=== PATIENT | female | born 1950 | race Caucasian/White ===

== ENCOUNTER 2020-06-03 07:40 | Observation (INO) | payer MEDICARE, OTHER ==
[~2020-06-03] VITALS: Ht 165.1 cm; Wt 59.1 kg
[2020-06-03] VITALS (7 sets, daily range): BP systolic 68–147; BP diastolic 35–87; Ht 165.1 cm; Wt 59.1 kg
--- NOTE | ~2020-06-03 | EC ---
PATIENT:CRYSTAL MUJICA DATE OF SERVICE: 06/03/20 SEX: F MEDICAL RECORD: [id number] DATE OF : [birth year] LOCATION:[address]212 AGE OF PATIENT: 70 ADMISSION DATE: 06/03/20 REFERRING PHYSICIAN: INTERPRETING PHYSICIAN: RAMÍREZ WHITE MD ECHOCARDIOGRAM REPORT ECHO CHARGES 4 ECHO COMPLETE Date: 06/03/20 CLINICAL DIAGNOSIS: CHEST PAIN ECHOCARDIOGRAPHIC MEASUREMENTS (adult normal given) AC root (d.<3.7cm) 2.3 cm LV Septum d (<1.2 cm> 1.1 cm Valve Excursion 1.0 cm LV Septum (systole) 1.2 cm Left Atria (s.<4.0cm> 2.7 cm LVPW d(<1.2cm) 1.0 cm RV (d.<2.3cm) 3.0 cm LVPW (sytole) 1.1 cm LV diastole(<5.6CM) 4.9 cm MV E-F(>70mm/sec) cm LV systole 3.4 cm LVOT Diameter 1.6 cm MV exc.(>10mm) 1.2 cm Est.ejection fraction (50-75%) % DOPPLER: LVIT cm/sec A 84.0 cm/sec E 69.0 cm/sec LA cm/sec RVSP 25 mmHg LVOT 116 cm/sec AOP1/2T m/s Asc. Ao 141 cm/sec RVOT 66 cm/sec RA cm/sec PA 84 cm/sec AV Gradient Peak 7.99 mmHg AV Mean 3.78 mmHg AV Area 1.4 cm MV Gradient Peak 3.17 mmHg MV Mean 1.34 mmHg MV Area cm COMMENTS: General Magistrate: 2 WON GARCIA Director Of Community Services: 4 Dr. White TAPE# PACS Pericardial Effusion N DATE OF SERVICE: PROCEDURE: Transthoracic echocardiogram. FINDINGS: 1. The patient has mild left ventricular hypertrophy with diastolic dysfunction with ejection fraction of 65% to 70% without evidence of regional wall motion abnormalities. 2. The left atrium is normal size, shape, structure, and function. ECHOCARDIOGRAM REPORT [id number] CRYSTAL MUJICA Aortic valve is normal. Mitral valve is normal. The tricuspid valve is normal with normal right ventricular systolic pressures. The right ventricle is normal. The right atrium is normal. Pulmonic valve is normal. 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
[2020-06-03] MEDS ORDERED: ELAVIL75 MG PO (07:52)
[2020-06-03] MEDS ORDERED: PREDNISONE5 MG PO (07:53)
[2020-06-03 08:21] LABS: APTT 22.1 SECONDS (22.8-39.4); BASOPHILS 0.3 % (0-2); CALC OSMOLALITY 269 mosm/kg (275-300); CALCIUM 8.8 mg/dL (8.5-10.1); CARBON DIOXIDE 26.9 mmol/L (21.0-32.0); CHLORIDE - SERUM 102 mmol/L (98-107); CREATININE - SERUM 0.7 mg/dL (0.6-1.3); EOSINOPHILS 1.2 % (0-7); GLUCOSE 93 mg/dL (74-106); HEMATOCRIT 41.6 % (36.0-48.0); HEMOGLOBIN 14.3 g/dL (12-16); IMMATURE GRANULOCYTES 0.2 % (0-5); INR 0.92 (0.85-1.17); LYMPHOCYTES 21.9 % (15-50); MCH 32.6 pg (26.0-34.0); MCHC 34.4 g/dL (31.0-37.0); MCV 94.8 fL (80.0-100.0); MEAN PLATELET VOLUME 10.2 fL (7.4-10.4); MONOCYTES 6.1 % (2-11); NEUTROPHILS 70.3 % (40-80); PLATELET COUNT 202 10x3/uL (130-400); POTASSIUM - SERUM 4.4 mmol/L (3.5-5.1); PROTIME 12.3 SECONDS (11.6-15.0); RBC 4.39 10x6/uL (4.00-5.40); RDW 12.8 % (11.5-14.5); SODIUM 135 mmol/L (136-145); UREA NITROGEN 13 mg/dL (7-18); WBC 12.7 10x3/uL (4.8-10.8); eGFR NON AFRICAN AMERICAN 88 mL/min (90-120)
[2020-06-03 08:35] LABS: ALBUMIN 3.7 g/dL (3.4-5.0); ALKALINE PHOSPHATASE 79 U/L (30-120); ALT (SGPT) 51 U/L (10-68); BILIRUBIN - TOTAL 0.54 mg/dL (0.2-1.3); CKMB 0.9 U/L (0.0-3.6); CREATINE KINASE 79 UL (21-215); PROTEIN - SERUM 7.3 g/dL (6.4-8.2); TROPONIN-I < 0.017 ng/mL (0.000-0.060)
--- NOTE | 2020-06-03 08:37 | NUR ---
PT REPORTS DECREASE IN PAIN FROM 8 TO 6 WITH 1 NITRO. PT BECAME HYPOTENSIVE, AND LAID FLAT. ADVISED EDP. 500ML NS BOLUS INITIATED AT THIS TIME. WILL CONTINUE TO MONITOR.
--- NOTE | 2020-06-03 09:57 | NUR ---
called report to medardo craven
--- NOTE | 2020-06-03 11:33 | NUR ---
RECEIVED PT FROM ER. PT IS AAO AND UP AD MILLI. VSS AND WNL. NO S/S OF DISTRESS NOTED. PIV TO LEFT FOR. SALINE LOCKED. QUICKSTART, MED REQ, HISTORY, AND ASSESSMENT COMPLETE. TELEMETRY APPLIED. 12 LEAD EKG PERFORMED. PT DENIES ANY NEEDS AT THIS TIME. WILL CTM.
[2020-06-03 12:27] LABS: CKMB 0.8 U/L (0.0-3.6); CREATINE KINASE 46 UL (21-215)
[2020-06-03 12:30] LABS: TROPONIN-I < 0.017 ng/mL (0.000-0.060)
[2020-06-03 13:38] LABS: BILIRUBIN NEGATIVE (NEGATIVE); GLUCOSE NEGATIVE (NEGATIVE); KETONE NEGATIVE (NEGATIVE); NITRITE NEGATIVE (NEGATIVE); SPECIFIC GRAVITY 1.015 (1.005-1.020); UROBILINOGEN NORMAL (NORMAL)
[2020-06-03 13:39] LABS: BACTERIA FEW /hpf (NEGATIVE); RED CELLS - URINE NONE SEEN /hpf (0-5); WHITE CELLS - URINE RARE /hpf (NEGATIVE)
[2020-06-03 13:51] LABS: UDS - AMPHET NEGATIVE QUAL (NEGATIVE); UDS - BARB NEGATIVE QUAL (NEGATIVE); UDS - BENZO NEGATIVE QUAL (NEGATIVE); UDS - COCAINE NEGATIVE QUAL (NEGATIVE); UDS - OPIATE POSITIVE QUAL (NEGATIVE); UDS - PCP NEGATIVE QUAL (NEGATIVE); UDS - THC NEGATIVE QUAL (NEGATIVE)
--- NOTE | 2020-06-03 15:09 | NUR ---
RECEIVED VERBAL ORDERS PER FOR 30MG IV TORDOL ONE TIME DOSE NOW. ORDER PLACED. WILL CTM.
[2020-06-03 19:34] LABS: CKMB 0.8 U/L (0.0-3.6); CREATINE KINASE 45 UL (21-215); TROPONIN-I < 0.017 ng/mL (0.000-0.060)
[2020-06-04 04:30] VITALS: BP 131/79
[2020-06-04 06:05] LABS: BASOPHILS 0.2 % (0-2); EOSINOPHILS 0.1 % (0-7); HEMATOCRIT 39.2 % (36.0-48.0); HEMOGLOBIN 13.3 g/dL (12-16); IMMATURE GRANULOCYTES 0.2 % (0-5); LYMPHOCYTES 9.5 % (15-50); MCH 32.2 pg (26.0-34.0); MCHC 33.9 g/dL (31.0-37.0); MCV 94.9 fL (80.0-100.0); MEAN PLATELET VOLUME 9.8 fL (7.4-10.4); MONOCYTES 6.6 % (2-11); NEUTROPHILS 83.4 % (40-80); PLATELET COUNT 195 10x3/uL (130-400); RBC 4.13 10x6/uL (4.00-5.40); RDW 12.7 % (11.5-14.5); WBC 11.3 10x3/uL (4.8-10.8)
[2020-06-04 06:33] LABS: ALBUMIN 3.3 g/dL (3.4-5.0); ALKALINE PHOSPHATASE 79 U/L (30-120); CALC OSMOLALITY 273 mosm/kg (275-300); CALCIUM 8.4 mg/dL (8.5-10.1); CARBON DIOXIDE 27.6 mmol/L (21.0-32.0); CHLORIDE - SERUM 102 mmol/L (98-107); CREATININE - SERUM 0.7 mg/dL (0.6-1.3); GLUCOSE 126 mg/dL (74-106); POTASSIUM - SERUM 4.1 mmol/L (3.5-5.1); PROTEIN - SERUM 7.1 g/dL (6.4-8.2); SODIUM 136 mmol/L (136-145); UREA NITROGEN 13 mg/dL (7-18); eGFR NON AFRICAN AMERICAN 88 mL/min (90-120)
[2020-06-04 06:36] LABS: ALT (SGPT) 37 U/L (10-68)
[2020-06-04 09:17] VITALS: BP 123/77
[2020-06-04] MEDS ORDERED: TORADOL10 MG PO (10:00)
[2020-06-04] MEDS ORDERED: LEVOFLOXACIN500 MG PO (10:00)
[2020-06-04] MEDS ORDERED: ZOFRAN4 MG PO (10:01)
--- NOTE | 2020-06-04 10:47 | NUR ---
IV AND TELEMETRY DCD. DC PLANS GIVEN. UNDERSTANDING VOICED. ESCORTED TO CAR BY W/C.
== END 2020-06-04 10:48 | disposition home or self-care (01) ==
LOC: D.OPS 07:40 → D.ER 07:40 → EDSTATUS 09:33 → D.M2 09:34 → D.OPS 23:03 → OBSVTIME 23:04 → D.M2 06-04 10:48
PROVIDERS: Emergency Medicine; ADMIT Family Medicine; ATTEND Family Medicine
DX: I20.9 Angina pectoris, unspecified (principal); M06.9 Rheumatoid arthritis, unspecified; E87.1 Hypo-osmolality and hyponatremia; R19.00 Intra-abdominal and pelvic swelling, mass and lump, unspecified site

== ENCOUNTER → 2020-06-19 10:32 | Outpatient (CLI) | payer MEDICARE, OTHER ==
[2020-06-03 15:04] VITALS: BMI 21.6
[~2020-06-19 10:32] MED LIST: ELAVIL75 MG PO; LEVOFLOXACIN500 MG PO; PREDNISONE5 MG PO; TORADOL10 MG PO; ZOFRAN4 MG PO
== END | disposition home or self-care (01) ==
LOC: D.CT 10:30
PROVIDERS: ATTEND Family Medicine
DX: R19.00 Intra-abdominal and pelvic swelling, mass and lump, unspecified site (principal)

== ENCOUNTER → 2021-05-10 07:50 | Outpatient (CLI) | payer MEDICARE, OTHER ==
[2020-06-03 15:04] VITALS: BMI 21.6
[2021-05-10 08:21] LABS: EOSINOPHILS 6.3 % (0-7); HEMATOCRIT 40.7 % (36.0-48.0); HEMOGLOBIN 13.8 g/dL (12-16); LYMPHOCYTES 46.6 % (15-50); MCH 31.3 pg (26.0-34.0); MCHC 33.8 g/dL (31.0-37.0); MCV 92.6 fL (80.0-100.0); MEAN PLATELET VOLUME 7.9 fL (7.4-10.4); MONOCYTES 9.4 % (2-11); NEUTROPHILS 36.7 % (40-80); PLATELET COUNT 211 10x3/uL (130-400); RDW 13.3 % (11.5-14.5); WBC 4.6 10x3/uL (4.8-10.8)
[2021-05-10 08:29] LABS: ALBUMIN 3.9 g/dL (3.4-5.0); BILIRUBIN - DIRECT 0.1 mg/dL (0.00-0.30); BILIRUBIN - INDIRECT 0.45 mg/dL (0.00-1.00); BILIRUBIN - TOTAL 0.55 mg/dL (0.2-1.3); PROTEIN - SERUM 7.4 g/dL (6.4-8.2)
== END | disposition home or self-care (01) ==
LOC: D.MRI 07:50
PROVIDERS: ATTEND Internal Medicine Gastroenterology
DX: R93.89 Abnormal findings on diagnostic imaging of other specified body structures (principal); K76.9 Liver disease, unspecified